=== PATIENT | male | born 1990 ===

== ENCOUNTER 2018-12-22 02:57 | Emergency (ER) | payer SELFPAY ==
[2018-12-22] MEDS ORDERED: Sodium Chloride 0.9% 500 ML IV ONE (03:23)
[2018-12-22] MEDS ORDERED: Sodium Chloride 0.9% 1,000 ML ONE (03:52)
[2018-12-22 03:54] LABS: BASO # 0.2 K/uL (0.0-0.2); EOS # 0.1 K/uL (0.0-0.7); EOS % 1.5 % (0.0-4.0); LYMPH # 1.7 K/uL (1.0-4.3); LYMPH % 20.5 % (20.0-40.0); MEAN CELL VOLUME 88.2 fL (80.0-94.0); MEAN PLATELET VOLUME 8.3 fL (7.2-11.7); MONO # 0.6 K/uL (0.0-0.8); MONO % 6.8 % (0.0-10.0); NEUT # 5.6 K/uL (1.8-7.0); NEUT % 69.2 % (50.0-75.0); NRBC % 0.1 % (0.0-2.0); RBC 4.3 Mil/uL (4.40-5.90); RED CELL DISTRIBUTION WIDTH 14.3 % (11.5-14.5); WHITE BLOOD COUNT 8.1 K/uL (4.8-10.8)
[2018-12-22 04:20] LABS: MEAN CORPUSCULAR HEMOGLOBIN 29.5 pg (27.0-31.0); MEAN CORPUSCULAR HGB CONC 33.5 g/dL (33.0-37.0)
[2018-12-22 04:21] LABS: HEMOGLOBIN 12.7 g/dL (12.0-18.0)
[2018-12-22 04:33] LABS: ALBUMIN 3.7 g/dL (3.5-5.0); ALT/SGPT 57 U/L (21-72); AST/SGOT 45 U/L (17-59); BLOOD UREA NITROGEN 13 mg/dL (9-20); CALCIUM 8.2 mg/dl (8.6-10.4); GFR NON-AFRICAN AMERICAN > 60; LIPASE 91 U/L (23-300)
--- NOTE | 2018-12-22 04:38 | C.PDOC ---
History Of Present Illness 28 year old male presents to the ER with epigastric pain 4pm with five episodes of watery stools with nausea. Denies vomiting, fever, bloody stool, recent travel, or sick contact. Time Seen by Provider: 12/22/18 03:12 Chief Complaint (Nursing): Abdominal Pain History Per: Patient History/Exam Limitations: no limitations Onset/Duration Of Symptoms: Hrs Current Symptoms Are (Timing): Still Present Location Of Pain/Discomfort: Epigastric Quality Of Discomfort: Unable To Describe Associated Symptoms: Nausea, Diarrhea. denies: Fever, Vomiting, Other (Bloody stool) Exacerbating Factors: None Alleviating Factors: None Recent travel outside of the [place]: No Past Medical History Reviewed: Historical Data, Nursing Documentation, Vital Signs Vital Signs: Last Vital Signs Temp 99.2 F 12/22/18 03:07 Pulse 85 12/22/18 03:07 Resp 20 12/22/18 03:07 BP 131/84 12/22/18 03:07 Pulse Ox 96 12/22/18 03:07 Primary Care Provider: FAMILY PROVIDER,NO Family History: States: Unknown Family Hx - Social History Hx Alcohol Use: Yes Hx Substance Use: No - Immunization History Hx Tetanus Toxoid Vaccination: Yes Hx Influenza Vaccination: No Hx Pneumococcal Vaccination: No Review Of Systems Constitutional: Negative for: Fever, Chills Respiratory: Negative for: Cough Gastrointestinal: Positive for: Nausea, Abdominal Pain, Diarrhea. Negative for: Vomiting, Other (Bloody stool) Genitourinary: Negative for: Dysuria, Hematuria Musculoskeletal: Negative for: Back Pain Physical Exam - Physical Exam Appears: Non-toxic, Other (Morbidly obese) Skin: Normal Color, Warm Head: Atraumatic, Normacephalic Eye(s): bilateral: Normal Inspection Oral Mucosa: Moist Chest: Symmetrical, No Tenderness Cardiovascular: Rhythm Regular Respiratory: Normal Breath Sounds, No Rales, No Rhonchi, No Wheezing Gastrointestinal/Abdominal: Bowel Sounds (Slightly increased), Soft, Tenderness (Epigastric and RUQ. No RLQ.), No Guarding, No Rebound Back: No CVA Tenderness Neurological/Psych: Oriented x3, Normal Speech ED Course And Treatment - Laboratory Results Result Diagrams: 12/22/18 03:49 12/22/18 03:49 Lab Results: Total Bilirubin 0.8 mg/dL (0.2-1.3) 12/22/18 03:49 AST 45 U/L (17-59) 12/22/18 03:49 ALT 57 U/L (21-72) 12/22/18 03:49 Alkaline Phosphatase 96 U/L (38-126) 12/22/18 03:49 Total Protein 7.3 g/dL (6.3-8.3) 12/22/18 03:49 Albumin 3.7 g/dL (3.5-5.0) 12/22/18 03:49 Globulin 3.6 gm/dL (2.2-3.9) 12/22/18 03:49 Albumin/Globulin Ratio 1.0 (1.0-2.1) 12/22/18 03:49 Lipase 91 U/L (23-300) 12/22/18 03:49 O2 Sat by Pulse Oximetry: 96 (Room air) Pulse Ox Interpretation: Normal - CT Scan/US CT abd/pel Other Rad Studies (CT/US): Read By Radiologist, Radiology Report Reviewed CT/US Interpretation: CT SCAN OF THE ABDOMEN AND PELVIS WITH CONTRAST. CLINICAL HISTORY: Patient with mid abdominal pain since 16:30 hrs yesterday. Diarrhea. T ECHNIQUE: Multiple axial and coronal CT images were obtained through the abdomen and pelvis after administration of intravenous contrast material. COMMENTS: Minimal basilar subsegmental atelectatic pulmonary changes. Moderately enlarged fatty liver. Mild changes of acute pancreatitis without necrosis or fluid collection. Uncomplicated colonic diverticulosis. The liver is of uniform attenuation without mass or defect. There is no intra or extrahepatic biliary ductal dilatation. The spleen is normal. The gallbladder is within normal limits. There is no evidence of adrenal mass. Both kidneys demonstrate prompt and equal nephrograms. The kidneys are normal in size, shape and configuration. There is no evidence of renal or ureteral mass. No renal or ureteral calculi are identified. There is no hydroureter or hydronephrosis. No evidence for appendicitis. There is no bowel wall thickening. No evidence for small or large bowel obstruction. There is no evidence of abdominal ascites or lymphadenopathy. There is no evidence of intrinsic or extrinsic bladder mass. There is no pelvic ascites or lymphadenopathy. Images of the lung bases show no evidence of pleural or parenchymal mass. There are no pleural effusions. The bony structures are free of lytic or blastic lesions. IMPRESSION: Minimal basilar subsegmental atelectatic pulmonary changes. Moderately enlarged fatty liver. Mild changes of acute pancreatitis without necrosis or fluid collection. Uncomplicated colonic diverticulosis. Progress Note: Blood work and CT abd/pel ordered. IV fluids, pepcid, zofran, and toradol administered. On reevaluation, patient is resting comfortbaly in no acute distress, tolerating PO, abdomen is soft, vitals are stable, lab and CT results discussed with patient, will discharge home with instructions to follow up with PMD or return if symptoms worsen. Disposition - Disposition Referrals: [facility] [Outside] Disposition: HOME/ ROUTINE Disposition Time: 07:00 Condition: STABLE Additional Instructions: Clear liquid to BRAT diet ( BAnanas, apples, applesauce, rice, toast, crackers, tea, broth) Avoid dairy or solid foods Return to ER if severe pain, vomiting or worse Prescriptions: Aluminum Hydroxide/Magnesium H [Maalox 30 ml] 30 ml PO TID #120 ml Ondansetron ODT [Zofran ODT] 1 odt PO BID PRN #10 odt PRN Reason: Nausea/Vomiting Ranitidine HCl [Zantac] 300 mg PO DAILY #30 tablet Instructions: Acute Abdomen (Belly Pain), Adult (DC) Forms: [employer] (Occitan) - Clinical Impression Clinical Impression: Abdominal pain, Diarrhea - PA / CHISEL TRIMMER / Resident Statement MD/DO has reviewed & agrees with the documentation as recorded. - Scribe Statement The provider has reviewed the documentation as recorded by the Scribjailene Varghese All medical record entries made by the Scribe were at my direction and personally dictated by me. I have reviewed the chart and agree that the record accurately reflects my personal performance of the history, physical exam, medical decision making, and the department course for this patient. I have also personally directed, reviewed, and agree with the discharge instructions and disposition.
[2018-12-22] MEDS ORDERED: Morphine 4 MG/ML VIAL ONE (05:27)
[2018-12-22] MEDS ORDERED: Iohexol 300 100 ML IJ ONE (05:39)
[2018-12-22 07:10] VITALS: BP 120/80; PULSE 84; RESP 14; TEMP 98.5
--- NOTE | 2018-12-22 08:10 | CT ---
Date of service: 12/22/2018 PROCEDURE: CT Abdomen and Pelvis without intravenous contrast HISTORY: abdominal pain COMPARISON: None. TECHNIQUE: Multiple contiguous axial images were performed through the abdomen and pelvis without the use of intravenous contrast. Subsequently, sagittal and coronal reformatted images were obtained. Radiation dose: Total exam DLP = 1563.53 mGy-cm. This CT exam was performed using one or more of the following dose reduction techniques: Automated exposure control, adjustment of the mA and/or kV according to patient size, and/or use of iterative reconstruction technique. FINDINGS: LOWER THORAX: Scattered areas of atelectasis and consolidation within the visualized lung benites. LIVER: Fatty infiltration of the liver. Suggestion of relative focal fatty sparing within the medial right hepatic lobe on series 3, images 69-76. Additional focal areas of focal fatty sparing near the ligamentum teres and gallbladder fossa. 1.3 centimeter rounded hyperattenuated focus/lesion seen within the right hepatic lobe on series 3, image 65. This is indeterminate. Further evaluation with contrast-enhanced multiphasic CT or MR is recommended to better characterize this lesion/focus. Additional 5 millimeter rounded hyperattenuated foci within the inferior right hepatic lobe on series 3, image 109, nonspecific. Again this may be better evaluated with contrast enhanced multiphasic CT or MR if clinically indicated. Clinical correlation. GALLBLADDER AND BILE DUCTS: Distended gallbladder with some possible sludge. PANCREAS: Thickening and heterogeneity the body of the pancreas with adjacent fat stranding and fluid consistent with an acute pancreatitis. SPLEEN: Unremarkable. ADRENALS: Unremarkable. No mass. KIDNEYS AND URETERS: Unremarkable. No hydronephrosis. No solid mass. VASCULATURE: Unremarkable. No aortic aneurysm. No aortic atherosclerotic calcification or mural plaque present. BOWEL: Unremarkable. No obstruction. No gross mural thickening. APPENDIX: Unremarkable. Normal appendix. PERITONEUM: Unremarkable. No free fluid. No free air. LYMPH NODES: Unremarkable. No enlarged lymph nodes. BLADDER: Unremarkable. REPRODUCTIVE: Unremarkable. BONES: No acute fracture. OTHER FINDINGS: None. IMPRESSION: 1. Thickening and heterogeneity at the level of the body of the pancreas with adjacent fat stranding and fluid suggestive for an acute pancreatitis. Clinical correlation. 2. Fatty infiltration of the liver. Suggestion of relative focal fatty sparing within the medial right hepatic lobe on series 3, images 69-76. Additional focal areas of focal fatty sparing near the ligamentum teres and gallbladder fossa. 1.3 centimeter rounded hyperattenuated focus/lesion seen within the right hepatic lobe on series 3, image 65. This is indeterminate. Further evaluation with contrast-enhanced multiphasic CT or MR is recommended to better characterize this lesion/focus. Additional 5 millimeter rounded hyperattenuated foci within the inferior right hepatic lobe on series 3, image 109, nonspecific. Again this may be better evaluated with contrast enhanced multiphasic CT or MR if clinically indicated. Clinical correlation. A preliminary report was generated at 6:51 a.m. on 12/22/[address] Melani Bynum from [employer]. This case was placed in the PA review folder.
[2018-12-23 05:13] VITALS: O2SAT 96
== END 2018-12-22 07:09 | disposition home or self-care (01) ==
LOC: C.ER 02:57
DX: R10.13 Epigastric pain (principal); R19.7 Diarrhea, unspecified
CPT/HCPCS: 74177; 80053; 83690; 85025; 96374; 96375; 99283; J1885; J2270; J2405; J7040; Q9967

== ENCOUNTER 2018-12-24 01:32 | Emergency (ER) | payer SELFPAY ==
[2018-12-24 01:41] VITALS: O2SAT 98
--- NOTE | 2018-12-24 02:06 | C.PDOC ---
History Of Present Illness 28-year-old male presents to the ED for evaluation of crampy abdominal pain. Patient was evaluated in this ED two days ago for similar complaint. He had normal labs, with Lipase of 91, and a CT scan which showed questionable pancreat ic inflammation. Patient was prescribed Protonix, Maalox and Zofran, which he has been taking. Patient also states he has been eat a very light diet. He reports history of severe sleep apnea. Denies fever, chills. Time Seen by Provider: 12/24/18 01:51 Chief Complaint (Nursing): Abdominal Pain History Per: Patient History/Exam Limitations: no limitations Onset/Duration Of Symptoms: Hrs Current Symptoms Are (Timing): Still Present Location Of Pain/Discomfort: Epigastric Radiation Of Pain To:: None Quality Of Discomfort: Cramping, "Pain" Associated Symptoms: denies: Fever, Chills Additional History Per: Patient Past Medical History Reviewed: Historical Data, Nursing Documentation, Vital Signs Vital Signs: Last Vital Signs Temp 97.6 F 12/24/18 01:38 Pulse 93 H 12/24/18 01:38 Resp 16 12/24/18 01:38 BP Pulse Ox 98 12/24/18 01:38 Primary Care Provider: Non [facility] Provider, - Medical History PMH: No Chronic Diseases Surgical History: No Surg Hx Family History: States: Unknown Family Hx - Social History Hx Alcohol Use: Yes Hx Substance Use: No - Immunization History Hx Tetanus Toxoid Vaccination: Yes Hx Influenza Vaccination: No Hx Pneumococcal Vaccination: No Review Of Systems Constitutional: Positive for: Other (severe sleep apnea ). Negative for: Fever, Chills Gastrointestinal: Positive for: Abdominal Pain (epigastric ) Physical Exam - Physical Exam Appears: Non-toxic, No Acute Distress, Other (morbidly obese ) Skin: Normal Color, Warm, Dry Head: Atraumatic, Normacephalic Oral Mucosa: Moist Neck: Supple Chest: Symmetrical, No Deformity, No Tenderness Cardiovascular: Rhythm Regular, No Murmur Respiratory: Normal Breath Sounds, No Rales, No Rhonchi, No Wheezing Gastrointestinal/Abdominal: Soft, Tenderness (epigastric ), No Guarding, No Rebound, Other (globus abdomen, tympanic to percussion ) Extremity: Normal ROM, Capillary Refill (less than 2 seconds ), Other (bilateral lower extremities unremarkable) Neurological/Psych: Oriented x3, Normal Speech, Normal Cognition ED Course And Treatment - Laboratory Results Result Diagrams: 12/24/18 02:18 12/24/18 02:18 Lab Interpretation: Normal (lipase 42, HDL low, LDL elevated) O2 Sat by Pulse Oximetry: 98 (on RA ) Pulse Ox Interpretation: Normal - Radiology CXR: Interpreted by Me CXR Interpretation: Yes: No Acute Disease - Other Rad abd x 2 X-Ray: Interpreted by Me (increased stool and gas) Progress Note: Bloodwork, urinalysis, Obstructive Series Abdomen ordered and reviewed. Magnesium Citrate PO and Toradol IVP given. Reevaluation Time: 02:59 Reassessment Condition: Improved Medical Decision Making Medical Decision Making: no pancreatitis lipids evaluated to r/o triglyceride driven pancreatitis prob constipation/colic with increased gas/stool throughout laxative given diet/weight loss educated Disposition Doctor Will See Patient In The: Office Counseled Patient/Family Regarding: Studies Performed, Diagnosis - Disposition Referrals: [facility] [Outside] [facility] [Outside] [facility] [Outside] Kendrick Acosta MD [Staff Provider] - Disposition: HOME/ ROUTINE Disposition Time: 03:00 Condition: GOOD Additional Instructions: nellie purgante y re-evalua adame molestia del abdomen despues de usar el roman 2-3 veces Cambios de dieta y ejercisio come 7 verduras y frutas crudas diarios Nunca come nada frito Sigue bajando de peso Sigue con la [facility] ron necessario Puede repeter tratamiento con purgante de vez en cuando- ron 1-2 veces al mes, si las sintoma se reoccuren. Estudio de Sueno: Kwadwo Acosta- especialista de sueno- para hacer estudio de sueno. Instructions: Constipation in Adults, Obstructive Sleep Apnea, Adult (DC) Forms: [facility] (Armenian) Print Language: SWEDISH - Clinical Impression Clinical Impression: Abdominal colic - Scribe Statement The provider has reviewed the documentation as recorded by the Scribe (Janki Nelson) Provider Attestation: All medical record entries made by the Scribe were at my direction and personally dictated by me. I have reviewed the chart and agree that the record accurately reflects my personal performance of the history, physical exam, medical decision making, and the department course for this patient. I have also personally directed, reviewed, and agree with the discharge instructions and disposition.
[2018-12-24 02:21] LABS: BASO # 0.1 K/uL (0.0-0.2); BASO % 1.1 % (0.0-2.0); EOS # 0.1 K/uL (0.0-0.7); EOS % 1.4 % (0.0-4.0); HEMOGLOBIN 13.4 g/dL (12.0-18.0); LYMPH # 1.8 K/uL (1.0-4.3); LYMPH % 17.7 % (20.0-40.0); MEAN CELL VOLUME 88.3 fL (80.0-94.0); MEAN CORPUSCULAR HEMOGLOBIN 29.7 pg (27.0-31.0); MEAN CORPUSCULAR HGB CONC 33.6 g/dL (33.0-37.0); MEAN PLATELET VOLUME 8.4 fL (7.2-11.7); MONO # 1.1 K/uL (0.0-0.8); MONO % 10.9 % (0.0-10.0); NEUT # 7.1 K/uL (1.8-7.0); NEUT % 68.9 % (50.0-75.0); NRBC % 0.1 % (0.0-2.0); RBC 4.52 Mil/uL (4.40-5.90); RED CELL DISTRIBUTION WIDTH 13.8 % (11.5-14.5); WHITE BLOOD COUNT 10.3 K/uL (4.8-10.8)
[2018-12-24 02:34] LABS: URINE BILIRUBIN NEGATIVE (NEGATIVE); URINE BLOOD NEGATIVE (NEGATIVE); URINE CLARITY Clear (Clear); URINE COLOR Yellow (YELLOW); URINE GLUCOSE (UA) NORMAL (Normal); URINE LEUKOCYTE ESTERASE NEG Leu/uL (Negative); URINE PROTEIN NEGATIVE (NEGATIVE); URINE UROBILINOGEN NORMAL mg/dL (0.2-1.0)
[2018-12-24 02:37] LABS: ALT/SGPT 63 U/L (21-72); AST/SGOT 48 U/L (17-59); BLOOD UREA NITROGEN 6 mg/dL (9-20); CALCIUM 8.9 mg/dl (8.6-10.4); GFR NON-AFRICAN AMERICAN > 60; HDL CHOLESTEROL 20 mg/dL (30-70); LIPASE 42 U/L (23-300)
[2018-12-24 02:45] LABS: LDL CHOLESTEROL 35 mg/dL (0-129)
[2018-12-24] MEDS ORDERED: Magnesium Citrate Oral SOL (300 ml) PO ONE (03:03)
[2018-12-24 03:31] VITALS: BP 132/88; PULSE 90; RESP 20; TEMP 98
[2018-12-24] MEDS ORDERED: Magnesium Citrate Oral SOL (300 ml) ONE (03:31)
--- NOTE | 2018-12-24 11:15 | RAD ---
Date of service: 12/24/2018 PROCEDURE: Radiographs of the chest and abdomen (obstructive series) HISTORY: abd pain COMPARISON: No prior. TECHNIQUE: AP radiograph of the chest, with upright and supine radiographs of the abdomen. 3 views obtained. FINDINGS: CHEST: Lungs: Clear. Cardiovascular: Normal size heart. No pulmonary vascular congestion. No aortic atherosclerotic calcification present Pleura: No pleural fluid. No pneumothorax. Other findings: None. ABDOMEN AND PELVIS: Bowel: Unremarkable bowel gas pattern. No evidence of mechanical obstruction. Free air: None. Bones: Unremarkable. Other findings: None. IMPRESSION: Unremarkable radiographs of chest and abdomen. No evidence of mechanical bowel obstruction.
== END 2018-12-24 03:30 | disposition home or self-care (01) ==
LOC: C.ER 01:32
DX: R10.84 Generalized abdominal pain (principal)
CPT/HCPCS: 74022; 80053; 80061; 81001; 83690; 85025; 96374; 99283; J1885